=== PATIENT | female | born 1965 | race Hispanic/Latino ===

== ENCOUNTER 2025-01-06 14:56 | Emergency (ER) | payer OTHER ==
[~2025-01-06] VITALS: Ht 157.5 cm; Wt 65.8 kg
[2025-01-06 15:42] LABS: BASOPHILS # (AUTO) 0.07 K/uL (0.00-0.20); BASOPHILS % (AUTO) 0.8 % (0.0-5.0); EOSINOPHILS # (AUTO) 0.14 K/uL (0.00-0.70); EOSINOPHILS % (AUTO) 1.5 % (0.0-8.0); HEMATOCRIT 40.4 % (36-48); IMMATURE GRANULOCYTE ABSOLUTE 0.06 K/uL (0-1); LYMPHOCYTES # (AUTO) 4.9 K/uL (1.0-4.8); LYMPHOCYTES % (AUTO) 52.8 % (21.0-51.0); MEAN CORPUSCULAR HEMOGLOBIN 28.3 pg (27.0-33.0); MEAN CORPUSCULAR HGB CONC 32.9 g/dL (32.0-36.0); MONOCYTES # (AUTO) 0.5 K/uL (0.1-1.0); MONOCYTES % (AUTO) 5.3 % (3.0-13.0); NEUTROPHILS # (AUTO) 3.6 K/uL (1.8-7.7); PLATELET COUNT (AUTO) 270 K/uL (130-400); RED CELL DISTRIBUTION WIDTH 12.5 % (11.0-15.5); WHITE BLOOD COUNT (AUTO) 9.3 K/uL (4.8-10.8)
[2025-01-06 16:02] LABS: CARBON DIOXIDE 26 mmol/L (21-32); CHLORIDE 100 mmol/L (101-111); CREATINE KINASE, TOTAL 76 U/L (21-232); CREATININE 0.8 mg/dL (0.5-1.0); GLOMERULAR FILTR. RATE CALC 85 mL/min (>90); GLUCOSE,RANDOM 165 mg/dL (70-105); SODIUM SERUM 138 mmol/L (136-145); UREA NITROGEN, BLOOD 15 mg/dL (7-18)
[2025-01-06 16:06] LABS: B-TYPE NATRIURETIC PEPTIDE 21 pg/mL (0-100); POTASSIUM 2.9 mmol/L (3.5-5.1)
--- NOTE | 2025-01-06 16:07 | HMCIMG ---
PORTABLE CHEST RADIOGRAPH INDICATION: CHEST PAIN COMPARISON: None FINDINGS: Heart size is normal. The pulmonary vascularity and villa appear normal. No abnormal pulmonary parenchymal opacity or consolidation identified. No significant pleural effusion noted. No pneumothorax detected. IMPRESSION: No radiographic evidence for any acute cardiopulmonary process.
--- NOTE | 2025-01-06 16:31 | ERN ---
General Chief Complaint: Chest Pain Stated Complaint: SOB, DIZZY Time Seen by MD: 14:57 Source: patient History of Present Illness Initial Comments Patient is a 59-year-old female coming in to be evaluated for chest pressure. Per patient she has been taking probiotics and believes that upset her stomach and made her heart race. She states that she has been having chest pressure since then. Allergies: Coded Allergies: Sulfa (Sulfonamide Antibiotics) (Unverified Allergy, Unknown, 01/06/25) Past Medical History Past Medical History: Other Medical History Other: THYROID PROBLEM Past Surgical History: BTL ROS Dictation CONSTITUTIONAL: No chills, no fever, no weakness, no diaphoresis, no malaise. HEAD/FACE: No signs of trauma. EENT: No eye pain, no blurred vision, no tearing, no double vision, no ear pain, no ear discharge, no nose pain, no nasal congestion, no throat pain, no throat swelling, no mouth pain. RESPIRATORY: No cough, no orthopnea, no SOB, no stridor, no wheezing. CARDIOVASCULAR: chest pain, no edema, no palpitations, no syncope. GASTROINTESTINAL/ABDOMINAL: No abdominal pain, no constipation, no diarrhea, no nausea, no vomiting. GENITOURINARY: No abnormal discharge, no dysuria, no frequent urination, no hematuria. No complaints of pain in the genitals. MUSCULOSKELETAL: No back pain, no gout, no joint pain, no joint swelling, no muscle pain, no muscle stiffness, no neck pain. INTEGUMENTARY: No change in color, no change in hair/nails, no dryness, no lesion, no lumps, no rash. NEUROLOGICAL/PSYCH: No anxiety, not depressed, no emotional problem, no headache, no numbness, no pre-existing deficit, no history of seizures, no tremors, no weakness. HEMATOLOGIC/LYMPHATIC: Not anemic, no history of blood clots, no apparent bleeding, no bruising, glands not swollen. All Systems Negative, Except as Noted. Physical Exam Physical Exam Dictation VITAL SIGNS: Reviewed. GENERAL APPEARANCE: Alert, oriented x3, no acute distress, obese. HEAD AND FACE: Non-traumatic. EYES: PERRL, pink conjunctivas, eyelid no trauma, anterior chamber clear. EARS: Pinnas intact and no signs of trauma or erythema. Ear canals clear and no discharge. TMs no erythema. NOSE: No discharge, no bleeding. OROPHARYNX: Mouth normal, teeth no caries, tongue pink. Pharynx clear, no erythema. Tonsils no exudates, no abscesses noted. Mucous membrane moist. NECK: Supple, non-tender, no thyromegaly, no masses, no JVD, no bruits. BREAST: Deferred. CHEST: No tenderness, no crepitus, no paradoxical movement, no retractions. LUNGS: Clear, well-ventilated, symmetric, no rales, no wheezing, no rhonchi, no stridor, good breath sounds bilaterally. HEART: Regular rate, regular rhythm, no murmur, no gallops. VASCULAR: No peripheral edema. ABDOMEN: Soft, positive bowel sounds, nondistended, no guarding, nontender, no rebound, no masses no hepatomegaly, no splenomegaly, no Saleh's sign, no hernias. RECTAL: Deferred. GENITAL: Deferred. NEUROLOGICAL: Normal speech, gross motor function intact, gross sensory function intact. MUSCULOSKELETAL: Neck nontender, full range of motion, back nontender, full range of motion. EXTREMITIES: Nontender, full range of motion. SKIN: Color pink, dry, no turgor, no rash, no lacerations, no abrasions, no contusions. LYMPHATICS: Deferred. Results Laboratory and Microbiology Lab and Micro Result Laboratory Tests Test 01/06/25 15:27 01/06/25 16:30 White Blood Count 9.3 K/uL (4.8-10.8) Red Blood Count 4.70 MIL/uL (4.00-5.50) Hemoglobin 13.3 g/dL (12.0-16.0) Hematocrit 40.4 % (36-48) Mean Corpuscular Volume 86.0 fL (79-99) Mean Corpuscular Hemoglobin 28.3 pg (27.0-33.0) Mean Corpuscular Hemoglobin Concent 32.9 g/dL (32.0-36.0) Red Cell Distribution Width 12.5 % (11.0-15.5) Platelet Count 270 K/uL (130-400) Mean Platelet Volume 9.9 fL (7.5-10.5) Immature Granulocyte % (Auto) 0.6 % (0-1) Neutrophils (%) (Auto) 39.0 % (40.0-77.0) L Lymphocytes (%) (Auto) 52.8 % (21.0-51.0) H Monocytes (%) (Auto) 5.3 % (3.0-13.0) Eosinophils (%) (Auto) 1.5 % (0.0-8.0) Basophils (%) (Auto) 0.8 % (0.0-5.0) Neutrophils # (Auto) 3.6 K/uL (1.8-7.7) Lymphocytes # (Auto) 4.9 K/uL (1.0-4.8) H Monocytes # (Auto) 0.5 K/uL (0.1-1.0) Eosinophils # (Auto) 0.14 K/uL (0.00-0.70) Basophils # (Auto) 0.07 K/uL (0.00-0.20) Absolute Immature Granulocyte (auto 0.06 K/uL (0-1) Nucleated Red Blood Cells 0.0 % (0.0-0.19) Sodium Level 138 mmol/L (136-145) Potassium Level 2.9 mmol/L (3.5-5.1) *L Chloride Level 100 mmol/L (101-111) L Carbon Dioxide Level 26 mmol/L (21-32) Blood Urea Nitrogen 15 mg/dL (7-18) Creatinine 0.8 mg/dL (0.5-1.0) Glomerular Filtration Rate Calc 85 mL/min (>90) Random Glucose 165 mg/dL (70-105) H Total Calcium 8.6 mg/dL (8.5-10.1) Magnesium Level 1.80 mg/dL (1.80-2.40) Total Creatine Kinase 76 U/L (21-232) Troponin I High Sensitivity < 4.0 ng/L (4-50) L B-Type Natriuretic Peptide 21 pg/mL (0-100) Influenza Type A Antigen Negative For Type A Influenza Type B Antigen Negative For Type B SARS-CoV-2 Antigen (Rapid) PRESUMPTIVE NEGATIVE Labs Reviewed?: Yes EKG/XRAY/US/CT/MRI EKG Comment 01/06/2025 time 3:11 p.m. Ventricular rate 78 Sinus rhythm [place] [address] wave elevation or depression X-RAY Comment IMAGING REPORT Signed PATIENT: KRISTINE OAKES MR#: [id number] : 1965 SEX: F AGE: 59 LOCATION: [facility] ORDER 11 STATUS: REG ER REPORT#: [id number] SERVICE 10 REASON: CHEST PAIN ORDERING PHYSICIAN: BISI FELICIANO MD PROCEDURE: CXR1VW - CHEST 1VW PORTABLE CHEST RADIOGRAPH INDICATION: CHEST PAIN COMPARISON: None FINDINGS: Heart size is normal. The pulmonary vascularity and villa appear normal. No abnormal pulmonary parenchymal opacity or consolidation identified. No significant pleural effusion noted. No pneumothorax detected. IMPRESSION: No radiographic evidence for any acute cardiopulmonary process. DICTATED BY: FELA BERUMEN MD DATE: 01/06/251603 ELECTRONICALLY SIGNED BY: FELA BERUMEN MD DATE: 01/06/251606 MDM MDM: DIFFERENTIAL DIAGNOSIS: HYPOKALEMIA, SINUSITIS, ACS, PATIENT IS A 59-YEAR-OLD FEMALE COMING IN TO BE EVALUATED FOR MULTIPLE COMPLAINTS. PATIENT STATES THAT SHE HAS BEEN HAVING RACING HEART SORE THROAT MUSCLE SPASMS. LABORATORY WORKUP HYPOKALEMIC ON PHYSICAL EXAM NASAL TURBINATE SWELLING OROPHARYNGEAL ERYTHEMA WITH POSTNASAL DRIP. PATIENT WILL BE DISCHARGED IN STABLE CONDITION WITH A DIAGNOSIS OF HYPOKALEMIA AND SINUSITIS. ED Course Orders Procedure Category Date Status Time Vital Signs Per CPOE 01/06/25 Transmitted Routine 15:11 B-Type Natriuretic LAB 01/06/25 Complete Peptide 15:11 Chest 1vw RAD 01/06/25 Resulted 15:11 12 Lead Ekg Tracing- EKG 01/06/25 Logged Technical 15:11 Oxygen By Nc/Pulse Ox CPOE 01/06/25 Transmitted 15:11 Maintain Iv CPOE 01/06/25 Transmitted 15:11 Iv Insertion CPOE 01/06/25 Transmitted 15:11 Cardiac Monitoring CPOE 01/06/25 Transmitted 15:11 Pulse Oximetry With CPOE 01/06/25 Transmitted Vs And Prn 15:11 Cbc With Differential LAB 01/06/25 Complete 15:11 Activity: Br W/Brp CPOE 01/06/25 Transmitted With Assist 15:11 Urinalysis Profile LAB 01/06/25 Logged 15:11 Basic Metabolic Panel LAB 01/06/25 Complete 15:11 Cardiac Panel LAB 01/06/25 Complete 15:27 Influenza Type A & B, LAB 01/06/25 Complete Rapid 17:35 Covid19 (Sars Antigen LAB 01/06/25 Complete Rapid) 17:35 Magnesium LAB 01/06/25 Complete 18:30 Potassium Bicarb/Cit PHA 01/06/25 Complete Ac 25meq (K-Lyte Ta 18:30 Current Medications Medications (Trade) Dose Ordered Sig/[place] Route PRN Reason Start Time Stop Time Status Last Admin Dose Admin Potassium Bicarbonate (K-Lyte Tablet Eff 25 Meq Tablet.eff) 50 meq ONCE ONCE PO 01/06/25 18:30 01/06/25 18:32 DC Vital Signs Date Time Temp Pulse Resp B/P (MAP) Pulse Ox O2 Delivery O2 Flow Rate FiO2 01/06/25 15:07 98.1 84 16 112/57 99 Room Air DX & DISP Disposition: Discharge Departure Impression: Primary Impression: Hypokalemia Additional Impression: Sinusitis Condition: Stable Scripts Potassium Chloride (K-Dur/Klor-Con) 10 Meq Ertab 1 TAB PO DAILY for 7 Days, #7 TAB 0 Refills Prov: BISI FELICIANO MD 01/06/25 Amoxicillin (Amoxicillin) 500 Mg Capsule 1 CAP PO TID for 10 Days, #30 CAP 0 Refills Prov: BISI FELICIANO MD 01/06/25 Loratadine/Pseudoephedrine (Loratadine-D 24Hr Tablet) 10 Mg-240 Mg Tab.er.24h 1 TAB PO DAILY for 7 Days, #7 TAB 0 Refills Prov: BISI FELICIANO MD 01/06/25 Fluticasone Propionate (Flonase Nasal Lind) 50 Mcg/Actuation Lind 2 SPRAY NS DAILY for 30 Days, #16 GM 0 Refills Prov: BISI FELICIANO MD 01/06/25 Additional Instructions: YOU HAVE BEEN REVIEWED IN THE EMERGENCY DEPARTMENT AT [facility] AFTER PRESENTING WITH CHEST PAIN. AFTER CONSIDERING YOUR HISTORY, YOUR RISK FACTORS, YOUR EKG AND YOUR BLOOD TEST TROPONINS, HAVE BEEN FOUND TO BE AT VERY LOW RISK LESS THAN (1 IN 100) OF HAVING A MAJOR ADVERSE CARDIAC EVENT (LIKE HEART ATTACK) IN THE NEAR FUTURE. IN THE " LOW RISK" GROUP, THE RISKS OF DOING FURTHER TESTS AND TREATMENT THE INPATIENT OUTWEIGHS THE BENEFITS. IN MANY PATIENTS IN THE LOW RISK GROUP FOR THE TEST OF ANY SORT OR UNNECESSARY, HOWEVER HE SHOULD DISCUSS THIS FURTHER WITH HIS GENERAL PRACTITIONER WHO WILL UNDERSTAND THE MEDICAL AND PERSONAL BACKGROUNDS BETTER. BECAUSE WE HAVE NEVER DECLARED YOU" NO RISK" WE WOULD SUGGEST. 1 RETURNING FOR MEDICAL REVIEW IF YOU HAVE FURTHER EPISODES OF CHEST PAIN/ARM PAIN OR OTHER CONCERNING SYMPTOMS LIKE DIZZINESS, COLLAPSE, PALPITATIONS OR SHORTNESS OF BREATH. 2. FOLLOWING UP WITH YOUR LOCAL DOCTOR WHO WILL CONSIDER THE NEED FOR FURTHER TESTING AND WILL ALSO ENSURE THAT ANY MODIFIABLE RISK FACTORS YOU MAY HAVE FOR HEART DISEASE ARE OPTIMALLY MANAGED. PATIENT WILL BE DISCHARGED IN STABLE CONDITION AT THE MOMENT DISCHARGE PATIENT STATES , NO CHEST PAIN Referrals: NONE (PCP) JUVENTINO BORJA MD Time of Disposition: 18:58 BISI FELICIANO MD Jan 06, 2025 16:30
[2025-01-06 17:56] LABS: COVID19 (SARS ANTIGEN RAPID) PRESUMPTIVE NEGATIVE (NEGATIVE); INFLUENZA TYPE A Negative For Type A (NEGATIVE); INFLUENZA TYPE B Negative For Type B (NEGATIVE)
[2025-01-06] MEDS: PoTASSium BIcarbonate/CIT AC 25 MEQ TABLET.EFF PO ONE (18:58)
[2025-01-06] MEDS ORDERED: AMOX500C2 PO (18:59)
[2025-01-06] MEDS ORDERED: POTA-187 PO (18:59)
[2025-01-06] MEDS ORDERED: FLUT16H NS (18:59)
[2025-01-06] MEDS ORDERED: P-EP-642 PO (18:59)
--- NOTE | 2025-01-06 19:15 | NUR ---
ASSUME CARE OF PATIENT AT THIS TIME
[2025-01-06 20:15] VITALS: BP 122/62; PULSE 79; RESP 16; TEMP 98.1; O2SAT 99
--- NOTE | 2025-01-07 07:36 | EKG ---
[facility] Test Date: 2025-01-06 Test Time: 15:11:07 Pat Name: KRISTINE OAKES Department: [facility] Room: Gender: F Home Based Assistant: [id number] : 1965 Requested By: BISI FELICIANO Order Number: [id number] Reading MD: Nick Jones Measurements Intervals [place] Rate: 78 P: 43 CO: 177 QRS: -25 QRSD: 92 T: 14 QT: 416 QTc: 475 Interpretive Statements Sinus rhythm Low voltage, precordial leads Poor R wave progression No previous ECG available for comparison Electronically Signed On 01-08-2025 14:48:04 CDT by Nick Jones Please click the below link to view image of tracing.
== END 2025-01-06 20:30 | disposition home or self-care (01) ==
LOC: EDH 14:56
DX: E87.6 Hypokalemia (principal); J32.9 Chronic sinusitis, unspecified; Z88.2 Allergy status to sulfonamides; Z98.51 Tubal ligation status; Z20.822 Contact with and (suspected) exposure to COVID-19
CPT/HCPCS: 36415; 71045; 80048; 82550; 83735; 83880; 84484; 85025; 87426; 87804; 93005; 99285